=== PATIENT | male | born 2000 | race Caucasian/White ===

== ENCOUNTER 2024-06-18 16:46 | Emergency (ER) | payer SELFPAY ==
[2024-06-18 16:50] VITALS: BP 144/84; PULSE 78; RESP 16; TEMP 37.2; O2SAT 98
--- NOTE | 2024-06-18 16:58 | ED.SKABFB ---
HPI - Skin/Abscess/Foreign Bdy General Stated complaint: SPIDER BITE Time Seen by Provider: 06/18/24 16:55 Source: patient Mode of arrival: ambulatory Limitations: no limitations History of Present Illness HPI narrative: Patient presents with a lesion on the back of his right lower leg with an area of erythema warmth and mildly tender started earlier today there is no drainage no fever chills. complaint: abscess/boil Onset (ago): hour(s) Tetanus up to date: yes Location: [facility] Related Data Allergies Allergy/AdvReac Type Severity Reaction Status Date / Time No Known Allergies Allergy Unverified 05/05/13 15:47 Review of Systems Review of Systems: All systems reviewed & are unremarkable except as noted in HPI and below PMFSH Past Medical History Medical History Patient denies medical problems Exam Const: General: healthy appearing Nutritional Appearance: well nourished Orientation/consciousness: patient oriented x3 Limitations: no limitations Resp: Effort & Inspection: normal respiratory effort Auscultation: clear to auscultation bilaterally Cardio: Rate: regular rate Rhythm: regular rhythm GI: GI Palp: Yes Soft to palpation Skin: Wounds: wounds noted Neuro: General: patient oriented x3 Cranial nerves: Yes Nystagmus not present Course Course Emergency Course: will send antibiotic patient's local pharmacy. Critical Care Time Critical Care Time Critical Care Time: No Discharge Plan Discharge Clinical Impression: Cellulitis Patient Disposition: Home, Self-Care Condition: Stable Instructions: Antibiotic Form, Cellulitis (ED) Additional Instructions: take medicine as prescribed and follow up with primary if symptoms persist or worsen. Prescriptions: New sulfamethoxazole-trimethoprim [Bactrim DS] 800-160 mg tablet 1 tablet PO Q12H Qty: 20 0RF Follow-up/Referrals: UNKNOWN,DOCTOR [Primary Care Provider] - Time of Disposition: 17:01
== END 2024-06-18 17:15 | disposition home or self-care (01) ==
LOC: CHSED 17:09
PROVIDERS: Emergency Provider Emergency Medicine
DX: L03.115 Cellulitis of right lower limb (principal)
CPT/HCPCS: 99283